=== PATIENT | female | born 2000 | race Caucasian/White ===

== ENCOUNTER 2022-05-29 14:51 | Outpatient (CLI) | payer BC, SELFPAY ==
--- NOTE | 2022-05-29 15:00 | CRLHL7_ITS ---
For Patients: As a result of the Century Cures Act, medical imaging exams and procedure reports are released immediately into your electronic medical record. You may view this report before your referring provider. If you have questions, please contact your health care provider. INDICATION: Third trimester scan, evaluate growth. COVID IN / GDM COMPARISON: 12/20/2021 TECHNIQUE: Real time robertson scale imaging of the fetus was performed. FINDINGS: Sonographic imaging demonstrates a single living intrauterine gestation. Fetus demonstrates a regular cardiac rate of 152 beats per minute. Fetus has a vertex position. The placenta lies posteriorly. Amniotic fluid volume appears normal and there is a single deepest vertical pocket: 3.9 cm. The estimated weight is 2200 gm which lies at the 84th %. BPD 78th percentile. HC 76th percentile. AC 89th percentile. FL 62nd percentile. The HC/AC ratio measures 1.04 range (0.95-1.11). IMPRESSION: Sonographic gestational age 33 weeks 4 days and sonographic due date 07/13/2022. Sonographic age 11 days ahead of the clinical age. Estimated weight 84th percentile. Abdominal circumference 89th percentile. Dictated by Thomas Romano MD @ 05/29/2022 4:00:04 PM (Electronically Signed)
== END 2022-05-29 14:52 | disposition home or self-care (01) ==
LOC: US 14:52
PROVIDERS: Visit Provider Advanced Practice Midwife
DX: O98.519 Other viral diseases complicating pregnancy, unspecified trimester (principal); U07.1 COVID-19; Z3A.33 33 weeks gestation of pregnancy
CPT/HCPCS: 76816

== ENCOUNTER 2022-06-26 14:50 | Outpatient (CLI) | payer BC, SELFPAY ==
[2022-06-27 12:52] LABS: Strep B DNA Probe POSITIVE (Negative)
== END 2022-06-26 14:51 | disposition home or self-care (01) ==
LOC: NFLDREF 14:50
PROVIDERS: Visit Provider Advanced Practice Midwife
DX: O98.513 Other viral diseases complicating pregnancy, third trimester (principal); U07.1 COVID-19; Z3A.37 37 weeks gestation of pregnancy
CPT/HCPCS: 76816; 87081; 87653

== ENCOUNTER 2022-07-31 07:05 | Inpatient (IN) | payer BC, OTHER, SELFPAY ==
[2022-07-31] VITALS (14 sets, daily range): BP systolic 95–119; BP diastolic 53–62; PULSE 65–89; RESP 14–16; TEMP 36.5–36.8; O2SAT 97–98
[2022-07-31 08:55] LABS: SARS PCR* Negative SARS-CoV-2 (Negative)
[2022-07-31] MEDS: miSOPROStoL 25 MCG/0.25 TABLET VAGINAL ×4 (09:15→23:33)
--- NOTE | 2022-07-31 10:07 | P.LDBA_ITS ---
Subjective History of Present Illness Time Seen by Provider: 08:40 Date Seen: 07/31/22 Narrative: Uma is being admitted to Labor and Delivery for induction or labor for postdates. She is a 22 year old at 41 0/7 weeks gestation. Partner, Al, and her mother are at bedside for support. Would like to labor in tub, considering water but would like to see how she feels at the time. Her full history and physical was dictated by Dr. Gibbs on 07/03/22. Please see this for details. Fiance: Al (also dad of baby). Baby: [place] gender. Blood type: A positive H&P by [facility] on 07/03/2022 1. Obesity. BMI 36.8 at new OB Hemoglobin A1c: 5.2% 2. History of tobacco use. Reported 5 cigarettes per day. Quit with positive UPT. 3. COVID early 1st trimester. No lingering symptoms. Did not received monoclonal Ab. Vaccinated X 2. Recommended booster. 32wk Growth-wants 36wk Growth-wants Weekly testing-wants (No longer recommended 05/29) 39 wk IOL-declines (No longer recommended 05/29) COVID + 2nd time 05/09/2022 4. Isolated echogenic intracardiac focus. [id number] ordered 03/08/22: negative 5. Gestational diabetes-diet controlled Elevated 1 hour GTT: 175; 3 hour GTT: 99H, 185H, 150, 66 Nutrition consult placed 05/05/2022: completed 06/26/2022: Reduced to BID testing, fasting and 1 pp 6. GBS positive, recommend antibiotics in labor. Patient is willing to receive prophylactic antibiotics. OB - H&P: Exam Physical Exam: Vital signs: Pulse BP Pulse Ox 83 98/61 98 07/31/22 07:43 07/31/22 07:43 07/31/22 09:55 Constitutional: Constitutional: no acute distress Routine HEENT Exam: Head: Present normocephalic Eye: Present normal appearance Routine Neck Exam: Neck: Present full ROM and normal inspection Routine Respiratory Exam: Respiratory: Present CTA bilaterally Routine Cardiovascular Exam: Cardiovascular: RRR Routine Abdominal Exam: Abdominal: Present soft Comments: Gravid Routine Exam: External: Present normal external exam Perineum Description: Normal Detailed Labor and Delivery Exam: Patient Gravid: yes Dilation (cm): 1 Effacement (%): 20 (Thick & soft) Cervix position: mid Consistency: soft Tachysystole: No Fetus (Single): Station: -3 Heart Rate Baseline: 120 Monitor Accelerations: Present Monitor Decelerations: None Correction Variability: Moderate (11-25) Routine Extremities Exam: Extremities: Present full ROM; Absent pedal edema Routine Back/Spine/Pelvis Exam: Back/Spine: full ROM Routine Skin Exam: Present intact, dry and warm Routine Neurological Exam: Present alert and oriented X3 Routine Psychiatric Exam: Present normal affect, normal thought process, cooperative, good insight and good judgment OB - Problem Based A/P Additional Plan (1) Post-dates : Status: Acute (2) Gestational diabetes mellitus (GDM): Status: Acute (3) GBS (group B Streptococcus carrier), +RV culture, currently : Status: Acute Plan ASSESSMENT:? 22 at 41 0/7 weeks gestation? complicated by:?GDM Labor type: Induction, not in labor? Category 1 FHR pattern.?? Labor complicated by: ? GBS positive? PLAN:? 1. Routine intrapartum cares as ordered. 2. IOL options including risks & benefits reviewed, decision made to proceed with Cytotec 3. Monitoring per policy, intermittent?at this time 4. Monitor blood sugars per GDM protocol 5. Planning unmedicated . Desires water labor and open to water . Consent signed. Hep C negative. Candidate for analgesia of choice.?? 6. Patient encouraged to reposition and ambulate to promote physiologic labor and .? 7. Continue to monitor for labor progress r/t concern for macrosomia r/t GDM and 41weeks postdates 8. GBS antibiotic prophylaxis in labor, per protocol 9. Anticipate Progress to NVD Growth U/S @ 37w 0d IMPRESSION: Sonographic gestational age 37 weeks 0 days and sonographic due date 07/17/2022. Sonographic age 1 week ahead of the clinical age. Estimated weight 77th percentile. Abdominal circumference 93rd percentile. Dictated by Thomas Romano MD 06/26/2022 ? Delivery/Labor/Induction Plan Plan: induction Induction method: per misoprostol protocol
[2022-07-31 10:46] LABS: Basophils Absolute Auto 0.01 K/uL (0.00-0.30); Basophils Percent Auto 0.1 % (0.0-3.0); Eosinophils Absolute Auto 0.04 K/uL (0.00-0.50); Eosinophils Percent Auto 0.4 % (0.0-7.0); Hematocrit 36.7 % (33.0-51.0); Hemoglobin* 12.1 gm/dL (12.0-16.0); Immature Granulocytes Abs Auto 0.02 K/uL (0.00-0.30); Lymphocytes Absolute Auto 2.29 K/uL (0.90-2.90); Lymphocytes Percent Auto 23.9 % (20-44); Mean Corpuscular HGB Conc 33 gm/dL (32-36); Mean Corpuscular Hemoglobin 29 pg (26-34); Mean Corpuscular Volume 89 fL (80-100); Monocytes Percent Auto 6.4 % (0.0-11.0); Neutrophils Absolute Auto 6.62 K/uL (1.7-7.0); Platelet Count* 211 K/uL (140-440); RDW Coefficient of Variation % 13.9 % (11.5-15.5); Red Blood Count 4.12 m/uL (4.00-5.20); White Blood Count* 9.59 K/uL (4.50-11.00)
[2022-07-31 11:21] LABS: Slide Review Reflex No
--- NOTE | 2022-07-31 15:50 | PM.OBPNL ---
Pain Control Time Seen by Provider: 15:30 Date Seen: 07/31/22 Pain control: tolerating well Comments: In to room to assess how Uma is coping with induction. Uma was comfortable, chatting with support people, and bouncing on yoga ball. Pt reports some contraction discomfort in lower back and abdomen, but otherwise no concerns. Discussed comfort measures including massage, forward leaning positions, and warm packs on back. Encouraged walking and position changes, as well as rest as needed. Contractions Monitor mode: External Contraction pattern: Irregular Contraction intensity: Mild Assessment and Plan Assessment: induction ongoing Plan: continue present management
[2022-07-31] MEDS: hydrOXYzine pamoate 25 MG CAPSULE 100 MG PO (23:33)
[2022-07-31] MEDS: MORPHINE 10 MG/ML inj IM (23:33)
[2022-08-01] VITALS (56 sets, daily range): BP systolic 92–130; BP diastolic 50–73; PULSE 66–203; RESP 14–18; TEMP 36.7–37.6; O2SAT 97–100
[2022-08-01] MEDS: miSOPROStoL 25 MCG/0.25 TABLET VAGINAL (03:23)
[2022-08-01] MEDS: LACTATED RINGERS 1000 ML 1,000 ML 125 ML IV ×2 (08:15→18:13)
[2022-08-01] MEDS: OXYTOCIN 30 unit/500 ML in NS 30 UNIT/500 ML BAG IVPB (08:23)
--- NOTE | 2022-08-01 08:47 | PM.OBPNL ---
Pain Control Time Seen by Provider: 07:20 Date Seen: 08/01/22 Pain control: tolerating well Comments: Uma is a 22 yo G1 at 41 1/7 weeks gestation. She is coping well with labor pain/contractions. She is currently being supported by her partner. Understands the current plan of care. Questions answered to her satisfaction. She denies any concerns. She would like to continue with position changes for comfort and pain management.?? Contractions Monitor mode: External Contraction pattern: Irregular Contraction intensity: Mild Pelvic Exam Dilation (cm): 1.5 Effacement (%): 70 Station: -2 Fetus (Single) status: Category l Comments: Intermittent Cat II with late decelerations Assessment and Plan Assessment: induction ongoing Plan: begin Pitocin augmentation Comments: ASSESSMENT:? 22 at 41 1/7 weeks gestation? complicated by:? Labor type: Induced, early labor? Category 1 FHR pattern.?? Labor complicated by: GBS +, GDM diet controlled? GBS negative? ? PLAN:? 1. Routine intrapartum cares as ordered. Start IV pitocin per protocol for labor induction. Discussed plan of Cervidil versus IV pitocin. Recommended pitocin to start, cervix is anterior and soft. 2. Monitoring per policy, continuous with Pitocin augmentation.? 3. Planning unmedicated . Desires water . Consent signed. Hep C negative. Candidate for analgesia of choice.?? 4. Patient encouraged to reposition and ambulate to promote physiologic labor and .? 5. GBS phrophylaxis initiated for GBS positive status. Will treat with antibiotics per protocol. 6. Anticipate ?
--- NOTE | 2022-08-01 10:41 | PM.OBPNL ---
Pain Control Time Seen by Provider: 10:30 Date Seen: 08/01/22 Pain control: nitrous oxide (RN currently setting up per pt request) Comments: Into room to say Good Morning to Uma, see how she is coping this morning and if she has any questions or concerns. Uma and Al in room, standing and breathing through contractions. Pitocin started this morning after cytotec administrations complete. Pt reporting more discomfort with contractions now and requested nitrous oxide. Encouraged pt to utilize hydrotherapy in shower or tub as desired. Will continue to monitor. Contractions Monitor mode: External Contraction frequency: 3 (3-5 min ) Contraction pattern: Regular Contraction intensity: Moderate (per pt) Fetus (Single) status: Category l Assessment and Plan Pitocin rate (mU/min): 3 Assessment: prodromal labor Plan: continue present management
[2022-08-01] MEDS: LIDOCAINE 2% (PF) 5 ML VIAL EPIDURAL (11:48)
[2022-08-01] MEDS: ROPIVACAINE 0.2% 100 ml 100 ML 12 MG EPIDURAL (11:49)
[2022-08-01] MEDS: ROPIVACAINE 0.2 % PF 10 ML INJ 20 MG EPIDURAL (11:50)
[2022-08-01] MEDS: AMPICILLIN 2 GM in 0.9 % SODIUM CHLORIDE Mini-bag 100 ML IVPB (11:58)
--- NOTE | 2022-08-01 11:59 | P.ANBPRC_ITS ---
[facility] Medical History (Updated 07/31/22 @ 13:04 by Avani William CNM) Cellulitis Social History Smoking Status: Former smoker Meds Home Medications and Allergies Home Medications Medication Instructions Recorded Confirmed Type prenat.vits,nakul,[id number] 1 tab PO QDAY 05/19/22 07/31/22 History Allergies Allergy/AdvReac Type Severity Reaction Status Date / Time No Known Allergies Allergy Unknown Verified 07/31/22 12:54 Results Labs Labs: Laboratory Results - last 24 hr 07/31/22 10:14 Blood Type A Positive Antibody Screen NEGATIVE Vital Signs Vital Signs: Last Vital Signs Temp 98.3 F 08/01/22 07:20 Pulse 82 08/01/22 11:59 Resp 14 08/01/22 03:34 BP 98/53 L 08/01/22 11:59 Pulse Ox 98 08/01/22 11:55 Weight: 125.277 kg Height: 167.64 cm Anesthesia Procedures Epidural Insertion Patient Location: OB Start Time: 11:35 Stop Time: 12:00 Start Date: 08/01/22 Stop Date: 08/01/22 Reason for Block: procedure for pain Patient Position: sitting Performed By: Jamie Huffman Preanesthetic Checklist: IV checked, risks and benefits discussed, surgical consent, monitors and equipment checked, pre-op evaluation, timeout performed and anesthesia consent Prep: chlorhexidine gluconate Monitoring: blood pressure monitoring, continuous pulse oximetry and heart rate Approach: midline Vertebral Space: lumbar (1-5) Needle Type: Tuohy needle Injection Technique: continuous catheter Needle gauge: 17 Needle Length (cm): 10 cm Needle Insertion Depth (cm): 7 Catheter Gauge: 19 Catheter Type: multi-orifice Catheter at skin depth (cm): 13 Test Dose Result: negative and lidocaine 1.5% with epinephrine 1 to 200,000
--- NOTE | 2022-08-01 14:12 | PM.OBPNL ---
Pain Control Time Seen by Provider: 13:00 Date Seen: 08/01/22 Pain control: epidural Comments: Into room to check pt progress after epidural placement. Uma resting comfortably in bed with Al supportive at bedside. Discussed current Pitocin augmentation and possible AROM to augment labor. Contractions Monitor mode: External Contraction frequency: 3 (3-5 min ) Contraction pattern: Regular Contraction intensity: Moderate (per pt) Pelvic Exam Dilation (cm): 4 Effacement (%): 80 Station: -2 Fetus (Single) status: Category ll Assessment and Plan Pitocin rate (mU/min): 3 Assessment: prodromal labor and induction ongoing Plan: continue present management (if continued late decels, turn off pitocin. )
[2022-08-01] MEDS: AMPICILLIN 1 GM in 0.9 % SODIUM CHLORIDE Mini-bag 100 ML IVPB (15:48)
--- NOTE | 2022-08-01 19:45 | P.OBPRC_ITS ---
Procedure Delivery date: 08/01/22 Procedure Done: Global Events: GDMA1 and Covid Infection in Intrapartal Events: Labor Induction (Post-term >41 weeks) and Prolonged Labor >20 Hrs Induction method: per misoprostol protocol Delivery augmentation: rupture of membranes and pitocin Delivery monitor: external FHT and external uterine Route of delivery: Indication for instrumentation: nonreassuring FHR tracing Laceration description: Labial (Right labial from perineum up) Delivery repair: Vicryl Estimated blood loss (mL): 100 Anesthesia type: Epidural Disposition: floor Narrative: The patient is a 22 year-old G1 now P1 at 41 1/7 weeks gestation, admitted yesterday for IOL for post-term >41 weeks. ? Labor Analgesia:? Epidural ? Pitocin:? Yes ? Labor onset:? 08/01/2022 1200 ? Complete:? 1615 ? Pushing:? 1622 ? heart tones during second stage were reassuring with decelerations noted with contractions with good return to baseline between with moderate variablity. ? Patient was admitted for IOL and progressed with induction by cytotec, pitocin, and AROM. AROM noted at 1518 with clear fluid. Patient was complete at 1615 and pushing at 1622. of a viable male at 1903 in semi-fowlers. Vertex delivered OA with compound right hand at face. No nuchal cord or shoulder. Body delivered easily and without incident. passed to mothers abdomen with a vigorous cry. Cord was clamped and cut at > 5 minutes. APGARS were 8 at one minute and 9 at five minutes respectively. Mouth was bulb suctioned. Intact placenta with a 3 vessel cord delivered spontaneously at 191. Fundus firm. Right labial abrasion identified and repaired in typical fashion. QBL 100 cc. Mother and baby stable; mother plans to breastfeed. weight pending. ? Placenta delivered spontaneously and complete at 1914 with a 3 vessel cord. ? Mother and infant were stable after delivery. ? Lacerations:? right labial abrasion, repaired with 3-0 vicryl. ? Blood loss: 100 mL. Blood loss measurement type: QBL ? Sponge and needles counts are correct. [place] Infant Gender: Male presentation: vertex Placental Delivery Description: Spontaneous Cord Description: 3 Vessels total score - 1 minute: 8 total score - 5 minute: 9 OB Vag Delivery Procedures Additional Procedures ECV: No Cook Catheter Insertion: No NST: No D&C: No Laceration Repair: Yes Tubal Ligation : No Other: No
--- NOTE | 2022-08-01 19:58 | PM.OBPNL ---
Pain Control Time Seen by Provider: 15:10 Date Seen: 08/01/22 Pain control: epidural Comments: Uma is a 22 yo at 41 1/7 weeks. She is coping well with labor pain/contractions. She is currently being supported by and mother. Understands the current plan of care. Questions answered to her satisfaction. She denies concerns. She would like to continue with epidural for comfort and pain management. Contractions Monitor mode: External Contraction frequency: 3 (3-5 min ) Contraction pattern: Regular Contraction intensity: Moderate (per pt) Pelvic Exam Dilation (cm): 7 Effacement (%): 90 Station: -1 Fetus (Single) Amniotic Membrane Status: AROM status: Category ll Assessment and Plan Assessment: active labor Plan: continue present management Comments: ASSESSMENT:? 22 at 41 1/7 weeks gestation? complicated by:? Labor type: Induced, Active labor? Category 2 FHR pattern.?? Labor complicated by: GBS +, 2nd dose at 1600 ? GBS Positive? ? PLAN:? 1. Routine intrapartum cares as ordered. Discussed AROM for augmentation. Patient agreeable. AROM'd with consent, cat II tracing requiring fluid bolus, pitocin stopped, and repositioning. Patient quickly progressed to complete. heart rate tracing resolved with position changes. CNM and RN continuously at bedside with heart rate changes. 2. Monitoring per policy, continuous? 3. Continue with epidural for pain management. 4. Patient encouraged to reposition and ambulate to promote physiologic labor and .? 5. GBS prophylaxis initiated for GBS positive status. Will treat with antibiotics per protocol. 6. Anticipate
[2022-08-01] MEDS: IBUPROFEN 600 MG TABLET PO (22:52)
[2022-08-02] MEDS: ACETAMINOPHEN 500 MG TABLET 1000 MG PO (01:50)
[2022-08-02 04:16] VITALS: BP 107/70; PULSE 90; RESP 18; TEMP 36.6; O2SAT 99
[2022-08-02 07:18] VITALS: BP 107/70; PULSE 82; RESP 18; TEMP 36.6; O2SAT 98
[2022-08-02 07:45] LABS: Hemoglobin* 12.1 gm/dL (12.0-16.0)
[2022-08-02 11:19] VITALS: BP 109/69; PULSE 79; RESP 16; TEMP 36.5; O2SAT 97
[2022-08-02] MEDS: IBUPROFEN 600 MG TABLET PO ×2 (11:23→18:18)
--- NOTE | 2022-08-02 12:26 | PM.OBPRCVD ---
Procedure Delivery date: 08/01/22 Procedure Done: Global Events: Labor Induction Intrapartal Events: Labor Induction Induction method: per pitocin protocol Laceration description: Labial (Right labial from perineum up) Estimated blood loss (mL): 100 Anesthesia type: Epidural [place] Infant Gender: Male presentation: vertex Placental Delivery Description: Spontaneous Cord Description: 3 Vessels total score - 1 minute: 8 total score - 5 minute: 9
--- NOTE | 2022-08-02 12:29 | P.OBPN_ITS ---
OB - PN:Subj Subjective Date Seen: 08/02/22 Patient comments OB post-: no complaints, pain well controlled, tolerating diet and flatus present [place] status: and doing well [place] feeding status: exclusively Narrative: Day 1:? Vaginal Delivery at 41 and 1/7 weeks.? ?? Complications:? none? The patient feels well.? The pain is well controlled with current medications.? She has no new complaints.? Urinary output is adequate and she is voiding without difficulty.? Has a good appetite, is tolerating a general diet, is passing flatus, and has not had a bowel movement.? Has?small amount of rubra lochia.? She is ambulating well. She is and states that it is going good.? OB - PN: Obj Exam Physical Exam: Vital signs: Temp Pulse Resp BP Pulse Ox O2 Del Method 97.7 F 79 16 109/69 97 08/02/22 11:19 08/02/22 11:19 08/02/22 11:19 08/02/22 11:19 08/02/22 11:19 08/02/22 11:19 Constitutional: Constitutional: no acute distress Routine HEENT Exam: Head: Present normal inspection Eye: Present normal appearance ENT: Present normal exam Routine Neck Exam: Neck: Present full ROM Routine Respiratory Exam: Respiratory: Present CTA bilaterally Routine Cardiovascular Exam: Cardiovascular: Present RRR Routine Abdominal Exam: Fundus: Present firm (u/1) Routine Back/Spine/Pelvis Exam: Back/Spine: Present full ROM Routine Neurological Exam: Neurological: Present alert and oriented X3 Routine Psychiatric Exam: Psychiatric: Present normal affect and normal thought process OB - PN: Obj Data Labs Labs: Laboratory Results - last 24 hr 08/02/22 07:28 Hgb 12.1 OB - PN: A/P Vaginal Delivery Assessment and Plan (1) Post-dates : Status: Acute (2) Gestational diabetes mellitus (GDM): Status: Acute (3) GBS (group B Streptococcus carrier), +RV culture, currently : Status: Acute Plan day: 1 Plan: routine care Comments: 1. Routine cares.? 2. Anticipate discharge tomorrow.?
[2022-08-02 16:45] VITALS: BP 107/71; PULSE 77; RESP 16; TEMP 36.4; O2SAT 98
[2022-08-03 00:10] VITALS: BP 101/69; PULSE 77; RESP 18; TEMP 36.6; O2SAT 96
[2022-08-03] MEDS: IBUPROFEN 600 MG TABLET PO ×2 (00:14→07:58)
[2022-08-03 07:33] VITALS: BP 102/69; PULSE 70; RESP 16; TEMP 36.6; O2SAT 97
--- NOTE | 2022-08-03 07:43 | P.DS_ITS ---
DS: Providers Provider Date Seen: 08/03/22 Date of admission: 07/31/22 07:05 Primary care physician: Not a Local Provider Admitting Clinician: Lynne Sevilla CNM Attending Physician on discharge: Lynne Sevilla CNM Date of Discharge: 08/03/22 Exam Const: Vital Signs, click to edit/add: Vital Signs - 24 hr 08/02/22 11:19 08/02/22 16:45 08/03/22 00:10 Temperature 97.7 F 97.6 F 97.8 F Pulse Rate [Right Radial] 79 77 77 Respiratory Rate 16 16 18 Blood Pressure [Ri ght Arm] 109/69 107/71 101/69 Pulse Oximetry 97 98 96 Oxygen Delivery Me thod Room Air Room Air Room Air Documenting provider has reviewed patient's vital signs: yes Common normals: no apparent distress, average body habitus, oriented x3, no limitations, healthy appearing, alert and well nourished HENMT: Common normals: normocephalic and hearing grossly normal bilaterally Head and scalp: normocephalic Eye: General eye: normal appearance of both eyes Neck & C-Spine: Common normals: full ROM, supple and no JVD General: normal visual inspection Resp: Common normals: normal respiratory effort, no retractions, no use of accessory muscles and clear to auscultation bilaterally Auscultation: clear to auscultation bilaterally Cardio: Common normals: no JVD, regular rate, regular rhythm, S1 normal heart sound, S2 normal heart sound, no gallops, no clicks, no murmurs and no rub Rate: regular rate Rhythm: regular rhythm Heart sounds: S1 normal and S2 normal GI: Common normals: soft to palpation and non-tender Palpation: soft Extremity: Common normals: full ROM Neuro: Common normals: oriented x3 Sensorium/orientation: alert Psych: Common normals: mental status grossly normal, thought process normal, cooperative, affect normal, speech normal and activity/motor behavior normal Appearance: grossly normal Speech: normal speech Thought process: normal thought process OB - DS: Summary Hospital Course Hospital Course: Day 2:? Vaginal Delivery at 41 and 1/7 weeks.? ?? Complications:? none? The patient is a 22 year old G 1 now P 1 at 41.1 weeks gestation that was admitted to the Center on 07/31/22 for IOL. She had an uncomplicated vaginal delivery. She delivered a viable male infant. The patient feels well.? The pain is well controlled with current medications.? She has no new complaints.? Urinary output is adequate and she is voiding without difficulty.? Has a good appetite, is tolerating a general diet, is passing flatus, and has not had a bowel movement.? Has?small amount of rubra lochia.? She is ambulating well.?She is breast feeding and feels it is going good. the patient has done well. Peripartum Data Infant delivery method: Vaginal Laceration description: Labial Episiotomy description: None complications: none Infant Gender: Male Discharge Plan: Home Status at Discharge Functional status at discharge: independent ambulation Overall status at discharge: patient is progressing back to baseline Time Spent with Patient Time attestation: Total time spent providing and/or coordinating discharge services: Discharge Plan Discharge Disposition: Home, Self-Care Date of Admission: 07/31/22 07:05 Primary Care Provider: Provider,Not a Local Condition: Stable Anticipated Discharge Date/Time: 08/03/22 10:00 Discharge Medications: New docusate sodium 100 mg Capsule 100 mg PO DAILY PRNQty: 100 0RF Rx Instructions: Take 1-2 tablets daily as needed for constipation. ibuprofen 600 mg Tablet 600 mg PO Q6H PRNQty: 90 0RF Continued prenat.vits,nakul,[id number] Tablet 1 tab PO QDAY Discharge Orders: Discharge Order (Routine); Ordered 08/03/22 Ordered By: Lachelle Robison Patient Education: OB Vaginal/Breast Feeding Activity Restrictions/Additional Instructions: Discharge instructions were reviewed with the patient including signs and symptoms of infection and home going medications.? Do not drive while taking pain meds.? Off Work or School for 6 weeks.? ?? Symptoms to report to doctor:? -Bleeding that saturates more than one pad per hour? -Passing clots larger than the size of a golf ball? -Pain not relieved by prescribed medication? -Fever above 100.4 degrees Fahrenheit? -A foul vaginal odor? -Difficulty in emotions, mood and functions? -Thoughts of hurting yourself and/or ? -Painful, reddened area in your breast? -Any drainage, redness or tenderness in your IV/epidural site? -Severe headache that doesn't improve after taking medications? -Changes in vision, including temporary loss of vision, blurred vision, and/or light sensitivity? -Upper abdominal pain (usually under ribs on the right side)? -Decrease in urination or painful, frequent urinating? -Chest pain? -Shortness of breath? -Tenderness or pain with redness and/swelling in the calf(s) of your leg? ?? Follow Up in clinic in 2 and 6 weeks.? ?? consultation services are available to all mothers and babies for the first year after delivery.? To make an appointment, please call [phone].? Activity Level: No Restrictions and Activity as Tolerated Discharge Diet: Regular Follow Up Appointments: Provider,Not a Local [Primary Care Provider] - Forms: [employer] Info Instructions
[2022-08-03 07:58] VITALS: TEMP 36.6
[2022-08-03 10:47] VITALS: BP 107/59; PULSE 92; RESP 16; TEMP 36.6
== END 2022-08-03 10:20 | disposition home or self-care (01) | DRG 560 ==
PROVIDERS: Advanced Practice Midwife; Admitting Provider Advanced Practice Midwife; Visit Provider Advanced Practice Midwife
DX: O99.824 Streptococcus B carrier state complicating childbirth (principal); O24.420 Gestational diabetes mellitus in childbirth, diet controlled; O48.0 Post-term pregnancy; O70.0 First degree perineal laceration during delivery; Z86.16 Personal history of COVID-19; Z3A.41 41 weeks gestation of pregnancy; Z37.0 Single live birth
CPT/HCPCS: 01967; 36415; 59200; 82962; 85018; 85025; 86850; 86900; 86901; 87635; A9270; J0290; J2270; J2795; J7120

== ENCOUNTER 2022-08-09 11:02 | Outpatient (CLI) | payer BC, SELFPAY ==
--- NOTE | 2022-08-09 14:57 | P.LACCB_ITS ---
Consult Note - Mom Date of Visit Date of visit: 08/14/22 instructional systems design consultant: Sally Luna Visit Code: Visit Patient's Information Phone number: [phone] : 1 Para: 1 Allergies No Known Allergies Allergy (Unknown, Verified 07/31/22 12:54) Mother's Medical History: Medical History (Updated 08/11/22 @ 00:01 by ) A1GDM Work Plans: returns to work for [employer] in 11/2022 Delivery Information Delivery type: Vaginal Weeks Gestation: 41.1 Gestational Age: AGA Weight: 3.915 kg Discharge Weight: 3.768 kg Baby's Information Baby's Age at Visit: 8 days Baby's Provider or Clinic: Dr. Stevens Jaundice: No Reason for Consult Reason for Consult: plugged ducts, baby is always hungry after nursing Past Experience Past Experience: No Current Frequency of Day Feedings: every 1.5 - 2 hours Frequency of Night Feedings: every 2 - 3 hours Both Breasts: Yes Suck: strong Latch: fairly wide Length of Time: about 15 minutes total Goals: would like to reduce the number of times she has to supplement Pumping Pumping: Yes (after most feedings) Quantity Pumped: 2 - 3 oz total Supplementing EMB Supplement: Yes (baby takes 2 - 3 oz EBM after most nursing sessions ) Formula Supplement: No Baby Elimination Number of Wet Diapers a Day: 5 - 6 or more Number of BM a Day: 5 - 6 or more; yellow and seedy Breast/Nipple Condition Breast Information: WNL Engorgement: No Maternal Nipple Condition - Left: Common Nipple Maternal Nipple Condition - Right: Common Nipple Sore Nipples: No Onsite Pre-Feed weight: 3.998 kg Post-Feed weight: 4.082 g Milk Transferred (mL): 84 Pre-Nursing Left Nipple: Within Normal Limits Pre-Nursing Right Nipple: Within Normal Limits Post-Nursing Left Nipple: Within Normal Limits Post-Nursing Right Nipple: Within Normal Limits Assessments/Interventions Assessments/Interventions: Met with mom and this now 8 day old ex- term AGA baby for consult.? Mom reports baby is usually still hungry after nursing and she developed plugged ducts in both breasts about two days ago.? She's tried warm packs and the [place] with Epsom salts with some relief.? Baby is nursing every 2 - 3 hours around the clock for about 15 minutes total, then mom usually has to supplement with 2 - 3 oz EBM.? She's pumping with a Spectra pump after almost every feeding.? Breasts large, symmetrical with rounded lower quadrants.? Plugged ducts can be felt in the upper and lower inner quadrants of both breast; she denies ever having s/s of mastitis.? Mom states she was out of the house a lot over the weekend and didn't nurse or pump on her normal schedule.? She denies wearing an underwire or tight fitting bra, carrying heavy objects, sleeping on her stomach. ? Nipples are everted and don't flatten or retract with compression; no damage noted.? Baby has gained 52 grams/day since his visit to PCP on 08/05 and today is 83 grams above BW at 8 DOL.? Per mom he had some facial bruising at delivery, but she denied any caput/cephalohematoma.? He also appears to have? equal ROM when turning his head and moving his extremities.? His palate is WNL and he has a strong suck on a finger.? His tongue extends past the gum line and has good lateral movement.? His upper frenulum is a little tight, and the lower frenulum was hard to visualize- posterior? Mom latched baby in the football hold on the right breast without assistance.? Baby appears to have a fairly wide latch and mom was comfortable.? Baby nursed about 15 minutes coming off a few times, but mom had no trouble re-latching him.? When she switched him to the left side and was verbally coached on finger placement around the areola, she was able to get a deeper latch and said it was more comfortable.? Baby nursed another 10 - 15 minutes and transferred 84 ml.? Mom reported this was a better feeding than he usual. We reviewed the flange sizes for her pump; suggested she try a 20 mm and she was given a Flange Fit Guide handout. Plan: 1. Continue to nurse ALD; offer both sides and try the different finger placement to see if the latch is better.? Mom also thought he did better b/c he was undressed. 2. Continue to use moist heat and the [place] with Epsom salts after nursing (at least during the day) until the plugged ducts have resolved.? If he doesn't nurse well, can pump to empty. 3. No medical need to supplement and hopefully with a deeper latch he won't want/need to as often. 4. Could also try lymphatic drainage massage, handout given and reviewed.? Also reviewed s/s of mastitis and when to contact her PCP. 5. Per mom PCP did not feel baby needed a 2 week C d/t his good weight gain so will f/u in for a one month pre and post feeding weight.? Will f/u on 08/14 by phone to see how she's feeling. Meds Home Medications and Allergies Home Medications Medication Instructions Recorded Confirmed Type prenat.vits,nakul,yip-kvov-lpsmb 1 tab PO QDAY 05/19/22 07/31/22 History Allergies Allergy/AdvReac Type Severity Reaction Status Date / Time No Known Allergies Allergy Unknown Verified 07/31/22 12:54
== END 2022-08-09 11:03 | disposition home or self-care (01) ==
PROVIDERS: Visit Provider Advanced Practice Midwife
DX: Z39.1 Encounter for care and examination of lactating mother (principal)
CPT/HCPCS: 99211

== ENCOUNTER 2022-08-20 12:57 | Emergency (ER) | payer BC, OTHER, SELFPAY ==
[2022-08-20 13:22] VITALS: BP 110/66; PULSE 107; RESP 18; TEMP 37.3; O2SAT 98; BMI 38.4
[2022-08-20 13:59] LABS: Basophils Absolute Auto 0.01 K/uL (0.00-0.30); Basophils Percent Auto 0.1 % (0.0-3.0); Eosinophils Absolute Auto 0.17 K/uL (0.00-0.50); Eosinophils Percent Auto 1.9 % (0.0-7.0); Hematocrit 38.8 % (33.0-51.0); Hemoglobin* 12.7 gm/dL (12.0-16.0); Immature Granulocytes Abs Auto 0.01 K/uL (0.00-0.30); Mean Corpuscular HGB Conc 33 gm/dL (32-36); Mean Corpuscular Hemoglobin 29 pg (26-34); Mean Corpuscular Volume 88 fL (80-100); Monocytes Percent Auto 4.8 % (0.0-11.0); Neutrophils Percent Auto 82.1 % (42.0-72.0); Platelet Count* 272 K/uL (140-440); Red Blood Count 4.42 m/uL (4.00-5.20); White Blood Count* 8.89 K/uL (4.50-11.00)
[2022-08-20 14:01] LABS: Slide Review Reflex No
[2022-08-20 14:32] LABS: Chloride* 106 mmol/L (96-114); Potassium* 3.6 mmol/L (3.6-5.1); Sodium* 137 mmol/L (135-149)
[2022-08-20 14:35] LABS: Carbon Dioxide* 24 mmol/L (20-32); Creatinine* 0.7 mg/dL (0.5-1.5); Est. Creatinine Clearance* 122.59; Estimated Glomerular Filt Rate 125 ml/min
[2022-08-20 14:36] LABS: Blood Urea Nitrogen* 16 mg/dL (5-24); Calcium* 9.1 mg/dL (8.4-10.6); Glucose* 97 mg/dL (60-115)
[2022-08-20 14:39] LABS: C Reactive Protein* 4.8 mg/dL (0.5-1.0)
[2022-08-20] MEDS: 0.9 % SODIUM CHLORIDE 1000 ml 1,000 ML IV (14:44)
[2022-08-20] MEDS: ACETAMINOPHEN 500 MG TABLET 1000 MG PO (14:48)
[2022-08-20 15:25] VITALS: BP 119/79; PULSE 100; RESP 18; O2SAT 98
--- NOTE | 2022-08-20 16:01 | ED.GENADULT ---
HPI - General Adult General Date Seen: 08/20/22 Chief complaint: Breast Symptoms Stated complaint: Mastitis Time Seen by Provider: 08/20/22 13:30 Source: patient History of Present Illness HPI narrative: Patient is a 22-year-old woman who had a baby I believe on August 01, her 1st baby. She is nursing, says it is generally going well but she seems to produce more milk than the baby needs. She pumps after nursing to manage the overage. She still feels like she does not completely empty her breasts. She was seen on Sunday, 5 days ago, and at that time had plugged ducts. Was managed with symptomatic management at that time, but felt like things got worse, had developed more redness and fevers by , and called clinic and was started on dicloxacillin. She has taken now several days of the dicloxacillin and says she isn't feeling better, in fact now she has a headache and feels kind of dizzy. She has not had any lightheadedness or fainting. She continues to have fevers however, and her breast still are painful and red. Denies vomiting or diarrhea. No chest pain or difficulty breathing. No urinary symptoms, no abdominal pain. He continues with nursing and pumping. Related Data Home Medications Medication Instructions Recorded Confirmed prenat.vits,nakul,ipz-tubr-ptyic 1 tab PO QDAY 05/19/22 08/20/22 acetaminophen 650 mg 650 mg PO Q6H PRN 08/20/22 08/20/22 tablet,extended release Previous Rx's Medication Instructions Recorded dicloxacillin 500 mg capsule 500 mg PO QID 7 days #28 caps 08/16/22 clindamycin HCl 300 mg capsule 300 mg PO QID #40 caps 08/20/22 Allergies Allergy/AdvReac Type Severity Reaction Status Date / Time No Known Allergies Allergy Unknown Verified 08/20/22 13:26 Review of Systems Status of ROS: Reports: 10 or more systems reviewed and unremarkable except as noted in History and below [facility] Medical History Cellulitis GBS (group B Streptococcus carrier), +RV culture, currently Gestational diabetes mellitus (GDM) Post-dates Social History Smoking Status: Former smoker How often do you have a drink containing alcohol: never AUDIT-C Alcohol total score: 0 Non-prescribed substance use: denies use Little interest or pleasure in doing things: not at all Feeling down, depressed, or hopeless: not at all Exam Narrative: Exam Narrative: Vital signs as noted above. In general, an alert, nontoxic young woman. Head: Normocephalic, atraumatic. Eyes: Pupils are equal reactive. Extraocular movements are full. Conjunctivae are normal. ENT: Mucous membranes are moist. Throat is normal. Neck: Supple without lymphadenopathy. Heart: Mildly tachycardic, regular. No murmur or rub. Breast exam: She has mild erythema noted in medial breast bilaterally. There is some tenderness in this region. I do not feel any significant induration. No fluctuance. Both breasts are soft, I do not feel lot of plugged ducts at the moment actually. Do not feel anything to suggest an abscess. Lungs: Clear bilaterally. No increased work of breathing, crackles or wheezes. Abdomen: Soft and nontender. No organomegaly. Extremities: Well perfused. No edema. No calf tenderness. Pulses intact. Neurologic: Patient is alert and oriented to person and place. Speech is fluent. Face is symmetric. Moves all extremities equally. Affect: Normal. Skin: Warm and dry. Well perfused. Const: Vital Signs, click to edit/add: Vital Signs - 24 hr 08/20/22 13:22 08/20/22 15:25 Temperature 99.2 F Pulse Rate [Pulse Oximeter] 107 H 100 Respiratory Rate 18 18 Blood Pressure [Ri ght Upper Arm] 110/66 119/79 Pulse Oximetry 98 98 Oxygen Delivery Me thod Room Air Room Air Documenting provider has reviewed patient's vital signs: yes Course Course Hospital Course: Placed an IV here and gave her a L of normal saline given mild tachycardia here. I checked labs including a CBC which shows a normal white blood cell count of 8.9. Hemoglobin is 12.7. Electrolytes are normal, BUN creatinine are normal. CRP is mildly elevated at 4.8, lactate is normal. I did send a breast milk culture given that she has not responded to the dicloxacillin. Blood pressure here has been normal, she is neither hypotensive nor hypertensive. Clinically she looks well. Breast exam is not concerning to me in terms of needing imaging to rule out an abscess. It does appear that despite several days of antibiotic she is not improving. She is afebrile here but reports fevers up to 101.9 at home. I am going to switch her to clindamycin to trying get some MRSA coverage. I am giving her a dose of vancomycin here. I would like her to follow up with OB in the next 1-2 days for recheck. Certainly if she is worsening further, shaking chills, vomiting, etcetera I would want her to come back. Continue with nursing recommendations per Ob. I did do 1 blood culture with her initial blood draw as well, but in the absence of elevated white blood cell count or lactate I did not do a 2nd blood culture. Vital Signs Vital signs: Initial Vital Signs Temperature 99.2 F 08/20/22 13:22 Temperature Source Temporal Artery Scan 08/20/22 13:22 Pulse Rate 107 H 08/20/22 13:22 Respiratory Rate 18 08/20/22 13:22 Blood Pressure 110/66 08/20/22 13:22 Blood Pressure Mean 80 08/20/22 13:22 Blood Pressure Position Sitting 08/20/22 13:22 Pulse Oximetry 98 08/20/22 13:22 Oxygen Delivery Method 08/20/22 13:22 Vital Signs Temperature 99.2 F 08/20/22 13:22 Pulse Rate 107 H 08/20/22 13:22 Respiratory Rate 18 08/20/22 13:22 Blood Pressure 110/66 08/20/22 13:22 Pulse Oximetry 98 08/20/22 13:22 Oxygen Delivery Method 08/20/22 13:22 Temperature 99.2 F 08/20/22 13:22 Pulse Rate 100 08/20/22 15:25 Respiratory Rate 18 08/20/22 15:25 Blood Pressure 119/79 08/20/22 15:25 Pulse Oximetry 98 08/20/22 15:25 Oxygen Delivery Method 08/20/22 15:25 Medical Decision Making Lab Data Labs: Lab Results 08/20/22 08/20/22 08/20/22 Range/Units 13:50 13:50 13:50 WBC 8.89 (4.50-11.00) K/uL RBC 4.42 (4.00-5.20) m/uL Hgb 12.7 (12.0-16.0) gm/dL Hct 38.8 (33.0-51.0) % MCV 88 (80-100) fL MCH 29 (26-34) pg MCHC 33 (32-36) gm/dL RDW Coeff of Christine 13.0 (11.5-15.5) % Plt Count 272 (140-440) K/uL Neut % (Auto) 82.1 H (42.0-72.0) % Lymph % (Auto) 11.0 L (20-44) % [place] % (Auto) 4.8 (0.0-11.0) % Eos % (Auto) 1.9 (0.0-7.0) % Baso % (Auto) 0.1 (0.0-3.0) % Neut # (Auto) 7.30 H (1.7-7.0) K/uL Lymph # (Auto) 1.00 (0.90-2.90) K/uL [place] # (Auto) 0.40 (0.00-0.90) K/UL Eos # (Auto) 0.17 (0.00-0.50) K/uL Baso # (Auto) 0.01 (0.00-0.30) K/uL Abs Immat Gran (auto) 0.01 (0.00-0.30) K/uL Sodium 137 (135-149) mmol/L Potassium 3.6 (3.6-5.1) mmol/L Chloride 106 (96-114) mmol/L Carbon Dioxide 24 (20-32) mmol/L BUN 16 (5-24) mg/dL Creatinine 0.7 (0.5-1.5) mg/dL Estimated Creat Clear 122.59 Estimated GFR 125 ml/min Glucose 97 (60-115) mg/dL Lactate 1.0 (0.5-1.9) mmol/L Calcium 9.1 (8.4-10.6) mg/dL C-Reactive Protein 4.8 H (0.5-1.0) mg/dL Discharge Plan Discharge Clinical Impression: Mastitis, acute Patient Disposition: Home, Self-Care Condition: Stable Instructions: Mastitis (ED) Additional Instructions: Follow-up in OB Clinic in 1-2 days for recheck. Switch to clindamycin. Ibuprofen or Tylenol as needed. Breast-feeding recommendations per Ob. Return for worsening symptoms. Prescriptions: New clindamycin HCl 300 mg capsule 300 mg PO QID Qty: 40 0RF No Action prenat.vits,nakul,[id number]-[id number] Tablet 1 tab PO QDAY acetaminophen 650 mg tablet extended release 650 mg PO Q6H PRN dicloxacillin 500 mg capsule 500 mg PO QID 7 Days Qty: 28 0RF Follow Up/Referrals: Provider,Not a Local [Primary Care Provider] - Stand Alone Forms: Dwllr Info Instructions
== END 2022-08-20 17:31 | disposition home or self-care (01) ==
PROVIDERS: Emergency Provider Emergency Medicine
DX: N61.0 Mastitis without abscess (principal)
CPT/HCPCS: 36415; 80048; 83605; 85025; 86140; 87040; 87070; 96361; 96365; 96366; 99284; A9270; J3370; J7030; J7120

== ENCOUNTER 2022-08-21 22:01 | Emergency (ER) | payer BC, OTHER, SELFPAY ==
[2022-08-21 22:09] VITALS: BP 128/83; PULSE 70; RESP 16; TEMP 37.2; O2SAT 99; BMI 38.4
--- NOTE | 2022-08-21 22:45 | CRLHL7_ITS ---
For Patients: As a result of the 21st Century Cures Act, medical imaging exams and procedure reports are released immediately into your electronic medical record. You may view this report before your referring provider. If you have questions, please contact your health care provider. INDICATION: Mid abdominal pain. COMPARISON: None available TECHNIQUE: CT examination of the abdomen and pelvis was performed with the uneventful intravenous administration of 118 cc of Isovue 370 while 3 mm thick axial sections were obtained from the lung bases through the pubic symphysis. Oral contrast was not administered. Please note that all CT scans at this facility use dose modulation, iterative reconstruction, and/or weight-based dosing when appropriate to reduce radiation dose to as low as reasonably achievable. FINDINGS: In the abdomen, the liver, pancreas, and adrenals are normal in appearance. The spleen is mildly enlarged, measuring 13.8 centimeters in length, with no sign of mass. The cause of the splenomegaly is not evident. The kidneys are normal in appearance. The mildly distended gallbladder has mild thickening its catherine along with mild pericholecystic fluid, suggesting acute cholecystitis. I do not see cholelithiasis. Recommend correlation with ultrasound of the right upper quadrant. There is no sign of biliary ductal dilatation. The abdominal aorta is normal in caliber with no sign of dilatation. There is no sign of retroperitoneal mass or adenopathy. The stomach, loops of small bowel, and colon in the abdomen are normal in appearance. There is a small fat containing periumbilical hernia. In the pelvis, the appendix is normal in appearance with no sign of inflammatory process. The loops of small bowel, colon, and rectum in the pelvis are normal in appearance. The uterus has mild dilatation of the intrauterine cavity with fluid, nonspecific. The uterus is otherwise normal in appearance. The adnexal regions are normal in appearance. There is a small amount of free fluid in the pelvis, nonspecific. The urinary bladder is normal in appearance. There is no sign of pelvic or inguinal mass or adenopathy. There is no sign of free air or free fluid in the abdomen. There is no sign of free air or extraluminal air in the pelvis. The lung bases are clear. The osseous structures are normal in appearance for the patient`s age. IMPRESSION: CT of the abdomen shows findings suggesting acute cholecystitis. Recommend correlation with the ultrasound of the right upper quadrant. No sign of biliary ductal dilatation. Mild splenomegaly of uncertain etiology. CT of the pelvis shows a small amount of free fluid of uncertain etiology. Mild distention of the uterine cavity with fluid of uncertain etiology. Please note that all CT scans at this facility use dose modulation, iterative reconstruction, and/or weight-based dosing when appropriate to reduce radiation dose to as low as reasonably achievable. Dictated by Kyrie James MD @ 08/22/2022 12:08:50 AM (Electronically Signed)
[2022-08-21 22:48] VITALS: O2SAT 99
[2022-08-21] MEDS: 0.9 % SODIUM CHLORIDE 1000 ml 1,000 ML IV (22:57)
[2022-08-21 22:59] LABS: Basophils Absolute Auto 0.01 K/uL (0.00-0.30); Basophils Percent Auto 0.1 % (0.0-3.0); Eosinophils Absolute Auto 0.39 K/uL (0.00-0.50); Eosinophils Percent Auto 3.6 % (0.0-7.0); Hematocrit 35.1 % (33.0-51.0); Hemoglobin* 11.5 gm/dL (12.0-16.0); Immature Granulocytes Abs Auto 0.03 K/uL (0.00-0.30); Mean Corpuscular HGB Conc 33 gm/dL (32-36); Mean Corpuscular Hemoglobin 29 pg (26-34); Mean Corpuscular Volume 88 fL (80-100); Monocytes Percent Auto 4.7 % (0.0-11.0); Neutrophils Percent Auto 73.3 % (42.0-72.0); Platelet Count* 277 K/uL (140-440); RDW Coefficient of Variation % 13.1 % (11.5-15.5); Red Blood Count 3.98 m/uL (4.00-5.20); White Blood Count* 10.94 K/uL (4.50-11.00)
[2022-08-21 23:00] VITALS: BP 126/73; PULSE 81; RESP 16; O2SAT 97
[2022-08-21 23:01] LABS: Slide Review Reflex No
--- NOTE | 2022-08-21 23:10 | ED.NURSE ---
Pt requesting water. Okayed with and brought to pt.
[2022-08-21 23:13] LABS: Albumin* 4.1 g/dL (3.3-5.0); Chloride* 108 mmol/L (96-114); Sodium* 142 mmol/L (135-149)
[2022-08-21 23:14] LABS: Potassium* 3.3 mmol/L (3.6-5.1)
[2022-08-21 23:16] LABS: Alkaline Phosphatase* 73 U/L (40-150); Amylase* 60 U/L (18-89); Aspartate Amino Transferase* 19 U/L (12-35); Bilirubin Total* 0.3 mg/dL (0.1-1.5); Blood Urea Nitrogen* 16 mg/dL (5-24); Carbon Dioxide* 25 mmol/L (20-32); Creatinine* 0.8 mg/dL (0.5-1.5); Est. Creatinine Clearance* 107.27; Estimated Glomerular Filt Rate 107 ml/min; Glucose* 118 mg/dL (60-115); Total Protein* 7.4 g/dL (6.0-8.3)
[2022-08-21 23:17] LABS: Alanine Aminotransferase* 19 U/L (4-35); Calcium* 9.1 mg/dL (8.4-10.6)
--- NOTE | 2022-08-21 23:28 | ED.GENADULT ---
HPI - General Adult General Chief complaint: Nausea/Vomiting Stated complaint: Vomiting, nausea Time Seen by Provider: 08/21/22 22:09 History of Present Illness HPI narrative: Pt is a 22 year old woman who presents with diffuse abdominal pain. She was seen yesterday for worsening mastitis and changed from dicloxacillin to clindamycin. She states that her breast pain has improved but now she is having severe abd pain in the mid abd. No reflux. She states the pain is severe. No change in her bowels. She has been eating. No radiation of her pain. No issues. No nausea or vomiting. No fever or dysuria. Related Data Home Medications Medication Instructions Recorded Confirmed prenat.vits,nakul,[id number] 1 tab PO QDAY 05/19/22 08/20/22 acetaminophen 650 mg 650 mg PO Q6H PRN 08/20/22 08/20/22 tablet,extended release Previous Rx's Medication Instructions Recorded dicloxacillin 500 mg capsule 500 mg PO QID 7 days #28 caps 08/16/22 clindamycin HCl 300 mg capsule 300 mg PO QID #40 caps 08/20/22 Allergies Allergy/AdvReac Type Severity Reaction Status Date / Time No Known Allergies Allergy Unknown Verified 08/20/22 13:26 Review of Systems Status of ROS: Reports: 10 or more systems reviewed and unremarkable except as noted in History and below [facility] Medical History Cellulitis GBS (group B Streptococcus carrier), +RV culture, currently Gestational diabetes mellitus (GDM) Post-dates Social History Smoking Status: Former smoker How often do you have a drink containing alcohol: never AUDIT-C Alcohol total score: 0 Non-prescribed substance use: denies use Little interest or pleasure in doing things: not at all Feeling down, depressed, or hopeless: not at all Exam Narrative: Exam Narrative: EXAM GENERAL: Patient appears comfortable and well. EYES: No scleral icterus. THYROID: no thyroid nodules or thyromegaly. LYMPH: No supraclavicular or cervical lymphadenopathy. SKIN: Visible skin seen during exam normal or with benign process only. EXT: No dependent lower extremity pedal edema. HEART: Regular rate and rhythm with no murmurs, rubs, or gallops. LUNGS: Clear to auscultation bilaterally with no crackles or wheezes. ABD: Soft, non tender, non distended. PSYCH: Good eye contact, speech is not pressured. Const: Vital Signs, click to edit/add: Vital Signs - 24 hr 08/21/22 22:09 08/21/22 22:48 08/21/22 23:42 Temperature 98.9 F Pulse Rate [Pulse Oximeter] 70 Respiratory Rate 16 Blood Pressure [Ri ght Upper Arm] 128/83 Pulse Oximetry 99 99 99 Oxygen Delivery Me thod Room Air Course Course Hospital Course: Pt has a normal exam. CT of abd and pelvis, cbc, cmp, amylase ua ordered. Pt given 1 liter ns with 4 mg of Zofran. Reevaluation(s) Reevaluation #1: Labs largely unremarkable. CT questions cholecystitis. Ultrasound ordered showing no signs of cholecystitis per tech. Negative Gibson's. Normal LFT's. Time: 01:48 Vital Signs Vital signs: Initial Vital Signs Temperature 98.9 F 08/21/22 22:09 Temperature Source Temporal Artery Scan 08/21/22 22:09 Pulse Rate 70 08/21/22 22:09 Respiratory Rate 16 08/21/22 22:09 Blood Pressure 128/83 08/21/22 22:09 Blood Pressure Mean 98 08/21/22 22:09 Blood Pressure Position Supine 08/21/22 22:09 Pulse Oximetry 99 08/21/22 22:09 Oxygen Delivery Method 08/21/22 22:09 Vital Signs Temperature 98.9 F 08/21/22 22:09 Pulse Rate 70 08/21/22 22:09 Respiratory Rate 16 08/21/22 22:09 Blood Pressure 128/83 08/21/22 22:09 Pulse Oximetry 99 08/21/22 22:09 Oxygen Delivery Method 08/21/22 22:09 Temperature 98.9 F 08/21/22 22:09 Pulse Rate 70 08/21/22 22:09 Respiratory Rate 16 08/21/22 22:09 Blood Pressure 128/83 08/21/22 22:09 Pulse Oximetry 99 08/21/22 23:42 Oxygen Delivery Method 08/21/22 22:09 Medical Decision Making MDM Narrative Medical decision making narrative: Pt is a post pardum woman being treated for mastitis who presents with abd pain. CT shows questionable cholecystitis which is not present on ultrasound. Labs largely unremarkable. Pt given IV fluids, ativan and zofran. Feeling somewhat better. Will need outpt follow up with Surgery to ensure gallbladder is not the cause of symptoms. Will discharge on Zofran to continue previous meds. Differential Diagnosis Differential Diagnosis: Gall bladder disease, ovarian cyst, colitis, appendictitis, bowel obstructi Lab Data Labs: Lab Results 08/21/22 08/21/22 08/21/22 Range/Units 22:54 22:54 23:25 WBC 10.94 (4.50-11.00) K/uL RBC 3.98 L (4.00-5.20) m/uL Hgb 11.5 L (12.0-16.0) gm/dL Hct 35.1 (33.0-51.0) % MCV 88 (80-100) fL MCH 29 (26-34) pg MCHC 33 (32-36) gm/dL RDW Coeff of Christine 13.1 (11.5-15.5) % Plt Count 277 (140-440) K/uL Neut % (Auto) 73.3 H (42.0-72.0) % Lymph % (Auto) 18.0 L (20-44) % [place] % (Auto) 4.7 (0.0-11.0) % Eos % (Auto) 3.6 (0.0-7.0) % Baso % (Auto) 0.1 (0.0-3.0) % Neut # (Auto) 8.00 H (1.7-7.0) K/uL Lymph # (Auto) 2.00 (0.90-2.90) K/uL [place] # (Auto) 0.50 (0.00-0.90) K/UL Eos # (Auto) 0.39 (0.00-0.50) K/uL Baso # (Auto) 0.01 (0.00-0.30) K/uL Abs Immat Gran (auto) 0.03 (0.00-0.30) K/uL Sodium 142 (135-149) mmol/L Potassium 3.3 L (3.6-5.1) mmol/L Chloride 108 (96-114) mmol/L Carbon Dioxide 25 (20-32) mmol/L BUN 16 (5-24) mg/dL Creatinine 0.8 (0.5-1.5) mg/dL Estimated Creat Clear 107.27 Estimated GFR 107 ml/min Glucose 118 H (60-115) mg/dL Calcium 9.1 (8.4-10.6) mg/dL Total Bilirubin 0.3 (0.1-1.5) mg/dL AST 19 (12-35) U/L ALT 19 (4-35) U/L Alkaline Phosphatase 73 (40-150) U/L Total Protein 7.4 (6.0-8.3) g/dL Albumin 4.1 (3.3-5.0) g/dL Amylase 60 (18-89) U/L Urine Color Yellow (Yellow) Urine Appearance Clear (Clear) Urine pH 5.5 (5.0-8.5) Ur Specific [place] >= 1.030 (1.000-1.030) Urine Protein Negative (Negative) Urine Glucose (UA) Negative (Negative) Urine Ketones Trace A (Negative) Urine Blood Trace-intact A (Negative) Urine Nitrite Negative (Negative) Urine Bilirubin Negative (Negative) Urine Urobilinogen 0.2 (0.2-1.0) Ur Leukocyte Esterase Negative (Negative) Urine RBC 0-2 (0-2) Urine WBC 2-5 (0-5) Ur Squamous Epith Cells Moderate A (None-Few) Urine Bacteria Few A (None) Urine Mucus Moderate A (None) SARS-CoV-2 (PCR) (Negative) 08/22/22 Range/Units 00:48 WBC (4.50-11.00) K/uL RBC (4.00-5.20) m/uL Hgb (12.0-16.0) gm/dL Hct (33.0-51.0) % MCV (80-100) fL MCH (26-34) pg MCHC (32-36) gm/dL RDW Coeff of Christine (11.5-15.5) % Plt Count (140-440) K/uL Neut % (Auto) (42.0-72.0) % Lymph % (Auto) (20-44) % [place] % (Auto) (0.0-11.0) % Eos % (Auto) (0.0-7.0) % Baso % (Auto) (0.0-3.0) % Neut # (Auto) (1.7-7.0) K/uL Lymph # (Auto) (0.90-2.90) K/uL [place] # (Auto) (0.00-0.90) K/UL Eos # (Auto) (0.00-0.50) K/uL Baso # (Auto) (0.00-0.30) K/uL Abs Immat Gran (auto) (0.00-0.30) K/uL Sodium (135-149) mmol/L Potassium (3.6-5.1) mmol/L Chloride (96-114) mmol/L Carbon Dioxide (20-32) mmol/L BUN (5-24) mg/dL Creatinine (0.5-1.5) mg/dL Estimated Creat Clear Estimated GFR ml/min Glucose (60-115) mg/dL Calcium (8.4-10.6) mg/dL Total Bilirubin (0.1-1.5) mg/dL AST (12-35) U/L ALT (4-35) U/L Alkaline Phosphatase (40-150) U/L Total Protein (6.0-8.3) g/dL Albumin (3.3-5.0) g/dL Amylase (18-89) U/L Urine Color (Yellow) Urine Appearance (Clear) Urine pH (5.0-8.5) Ur Specific [place] (1.000-1.030) Urine Protein (Negative) Urine Glucose (UA) (Negative) Urine Ketones (Negative) Urine Blood (Negative) Urine Nitrite (Negative) Urine Bilirubin (Negative) Urine Urobilinogen (0.2-1.0) Ur Leukocyte Esterase (Negative) Urine RBC (0-2) Urine WBC (0-5) Ur Squamous Epith Cells (None-Few) Urine Bacteria (None) Urine Mucus (None) SARS-CoV-2 (PCR) Negative SARS-CoV-2 (Negative) Discharge Plan Discharge Clinical Impression: Abdominal pain Condition: Stable Instructions: Abdominal Pain (ED) Additional Instructions: Follow up with General Surgery in Clinic Activity Level: No Restrictions Diet Detail: Low Fat Diet Prescriptions: No Action prenat.vits,nakul,[id number] Tablet 1 tab PO QDAY acetaminophen 650 mg tablet extended release 650 mg PO Q6H PRN clindamycin HCl 300 mg capsule 300 mg PO QID Qty: 40 0RF dicloxacillin 500 mg capsule 500 mg PO QID 7 Days Qty: 28 0RF Follow Up/Referrals: Irlanda Finley MD [Staff Physician] - Hadley Giordano MD [Staff Physician] - Emily Medeiros MD [Staff Physician] - Provider,Not a Local [Primary Care Provider] - Stand Alone Forms: iCAD Info Instructions
[2022-08-21 23:43] LABS: Appearance Urine Clear (Clear); Bilirubin Urine Negative (Negative); Blood Urine Trace-intact (Negative); Color Urine Yellow (Yellow); Glucose Urine Negative (Negative); Ketones Urine Trace (Negative); Leukocyte Esterase Urine Negative (Negative); Nitrite Urine Negative (Negative); Protein Urine Negative (Negative); Specific Gravity Urine >= 1.030 (1.000-1.030); Urobilinogen Urine 0.2 (0.2-1.0); pH Urine 5.5 (5.0-8.5)
[2022-08-21 23:51] LABS: RBC Urine 0-2 (0-2)
[2022-08-21 23:52] LABS: Bacteria Urine Few; Mucus Urine Moderate; Squamous Epithelial Cell Urine Moderate (None-Few)
--- NOTE | 2022-08-22 00:14 | CRLHL7_ITS ---
For Patients: As a result of the Century Cures Act, medical imaging exams and procedure reports are released immediately into your electronic medical record. You may view this report before your referring provider. If you have questions, please contact your health care provider. INDICATION: Nausea, vomiting, diffuse abdominal pain. . COMPARISON: CT of the abdomen and pelvis with contrast from earlier this evening at 2327 hours TECHNIQUE: Ultrasound examination of the right upper quadrant was performed. FINDINGS: The gallbladder wall is top normal in thickness at 3 millimeters. There is no pericholecystic fluid. There is mild cholelithiasis with multiple small, mobile, dependent calculi. There is diffuse abdominal tenderness, without a distinct sonographic Gibson sign. The common bile duct is normal in caliber at 3 mm. The pancreatic head and body were examined, and these are normal in appearance. The abdominal aorta and visualized portions of the inferior vena cava are normal in appearance. The liver shows no sign of mass or contour abnormality, and there is no sign of ascites. The right kidney is unremarkable. IMPRESSION: Mild cholelithiasis without evidence of acute cholecystitis. The gallbladder wall is top normal in thickness. No sign of biliary ductal dilatation. If acute cholecystitis remains of clinical concern, correlation with a nuclear medicine HIDA scan could be of benefit. Dictated by Kyrie James MD @ 08/22/2022 2:26:22 AM (Electronically Signed)
[2022-08-22] MEDS: LORazepam 2 MG/ML inj 0.5 MG IVP (00:45)
[2022-08-22 01:30] VITALS: BP 136/82; PULSE 84; RESP 16; O2SAT 96
[2022-08-22 01:40] LABS: SARS PCR* Negative SARS-CoV-2 (Negative)
[2022-08-22 02:19] VITALS: BP 133/81; PULSE 74; RESP 16
== END 2022-08-22 02:22 | disposition home or self-care (01) ==
PROVIDERS: Emergency Provider Internal Medicine
DX: R10.9 Unspecified abdominal pain (principal)
CPT/HCPCS: 36415; 74177; 76705; 80053; 81003; 81015; 82150; 85025; 87086; 87186; 87635; 94761; 96361; 96374; 99283; 99284; J2060; J7030; Q9967

== ENCOUNTER 2022-08-24 10:44 | Day surgery (SDC) | payer BC, OTHER, SELFPAY ==
[2022-08-24] VITALS (10 sets, daily range): BP systolic 92–143; BP diastolic 66–92; PULSE 56–93; RESP 16; TEMP 36.2–37; O2SAT 94–97; BMI 38.8
[2022-08-24] MEDS: LACTATED RINGERS 1000 ML 1,000 ML 100 ML IV (11:00)
[2022-08-24] MEDS: SODIUM CHLORIDE 0.9 % (FLUSH) 10 ML SYRINGE IVF (11:34)
[2022-08-24] MEDS: CEFAZOLIN 2 GM INJ IVP (13:38)
[2022-08-24] MEDS: BUPIVACAINE 0.25% 30 ML INJECTION (13:56)
--- NOTE | 2022-08-24 15:47 | P.GSOP_ITS ---
Operative Note Date of procedure: 08/24/22 Type of Procedure: 1. Laparoscopic cholecystectomy. Procedure Description: After discussing the risks and benefits of the procedure, the patient signed informed consent.? The operative site was marked and the patient was brought to the operating room and placed on the operating table in supine position.? Care was taken to pad the patient's pressure points.?? The patient was then intubated by anesthesia.?? The operative site was then prepped and draped in the usual sterile fashion.? A time-out was then performed. A 5-mm laparoscopy port was placed in the left upper quadrant guided by a 5-mm laparoscope placed into a translucent trochar.~ Passage through the layers of the abdominal wall was visualized with the laparoscope.~ A pneumoperitoneum was established. A 0-degree 5-mm laparoscope was advanced into the abdomen. The abdomen was briefly surveyed, and no adhesions were noted. A 10-mm port were placed supraumbilically and two more 5 mm ports were placed on the right under direct visualization by laparoscope. The camera was then changed to 10 mm 30- degree scope and placed into the abdomen through the 10 mm port. The left upper quadrant port entrance was examined and no injury to intra-abdominal organs was identified. The gallbladder was identified and was very inflamed and distended. Omentum was overlying the anterior wall of the gallbladder. We attempted to drain the gallbladder with a laparoscopic needle and 60 mL syringe but only minimal amount of bile was suctioned out. The gallbladder was retracted cephalad and the omentum and inflammatory rind was peeled off the gallbladder with suction tip and with hook cautery. The dissection was very difficult due to difficulties grabbing the gallbladder and identifying the structures in the triangle of Calot. The fundus grasped and retracted cephalad. Common bile duct was not identified but care was taken not to injure it. We continued dissection of the structures under triangle of Calot. This was done tedious Sarahy with care to avoid injury to the common bile duct. The cystic artery was identified medial to the cystic duct. The cystic artery was dissected circumferentially bluntly. The cystic artery was then clipped with 2 5 mm clips on the patient's side and a single clip on the specimen side and divided with scissors. I then continued to bluntly dissect the cystic duct circumferentially. There is a small vein posterior to the cystic duct that was clipped with 5 mm clip and divided with hook cautery near the gallbladder. The cystic duct was clearly identified and bluntly dissected circumferentially. I stayed close to the gallbladder infundibulum and the cystic duct was dilated. The cystic duct was then doubly ligated with surgical clips on the patient's side and singly clipped on the gallbladder side and divided. One of the 5 mm clips did not go across the cystic duct stump. I elected to place 0-0 PDS endoloop just distal to the clips. A single endoloop was placed however it was tightened inbetween the 2 clips. I then placed a second 0-0 PDS loop just proximal to the most proximal clip. The gallbladder was dissected from the liver bed in retrograde fashion using hookcautery. The gallbladder was placed into an Endo-Catch bag and removed through the supraumbilical incision. This incision had to be enlarged at the level of the skin and fascia on the right and left laterally in order to remove the gallbladder from the abdomen. The supraumbilical fascia was then closed with a running 0-0 Vicryl stitch. The abdomen was insufflated and surgical site was examined for bleeding. Active bleeding was noted from the omental fat. This was controlled with hook cautery. No further bleeding was seen in the surgical field. Pneumoperitoneum was completely reduced after viewing removal of the trocars under direct vision. The skin was then closed with 4-0 monocryl and steristrips were applied. Instrument, sponge, and needle counts were correct at closure and at the conclusion of the case. The patient was transferred to PACU in stable condition. ? Findings: Thick inflammatory rind around the gallbladder. Omentum was adherent to the gallbladder and those adhesions were taken down bluntly and with cautery. Anesthesia: GETA Surgeon: Hadley Giordano MD Estimated blood loss (mL): 10 Condition: stable Disposition: PACU
--- NOTE | 2022-08-24 15:49 | W.ANESCHARGE ---
Anesthesia Charges Start Date/Time Anesthesia Start Date: 08/24/22 Anesthesia Start Time: 13:28 Stop Date/Time Anesthesia Stop Date: 08/24/22 Anesthesia Stop Time: 15:47 Summary Emergency: No
[2022-08-24] MEDS: ONDANSETRON 2 MG/ML inj 4 MG IVP (16:14)
--- NOTE | 2022-08-24 16:51 | W.ANESCHARGE ---
Anesthesia Charges Start Date/Time Anesthesia Start Date: 08/24/22 Anesthesia Start Time: 13:28 Stop Date/Time Anesthesia Stop Date: 08/24/22 Anesthesia Stop Time: 15:47 Summary Emergency: No
--- NOTE | 2022-08-25 08:10 | ED.NURSE ---
script for cefzil 500mg BID x 7 days called to Family [facility]
== END 2022-08-24 17:22 | disposition home or self-care (01) ==
PROVIDERS: Visit Provider Surgery
PROC: 0FT44ZZ Resection of Gallbladder, Percutaneous Endoscopic Approach (ICD-10-PCS; CPT 47562; principal; 2022-08-24 12:00)
DX: K80.12 Calculus of gallbladder with acute and chronic cholecystitis without obstruction (principal)
CPT/HCPCS: 47562; 00790; 84703; 88304; J0330; J0690; J1100; J2250; J2405; J2704; J3010; J3490; J7120